=== PATIENT | male | born 1935 | race Native Hawaiian/Other Pacific Islander ===

== ENCOUNTER 2018-08-24 12:44 | Inpatient (IN) | payer MEDICARE, MEDICAID ==
[~2018-08-24] VITALS: Ht 154.9 cm; Wt 55.8 kg
[2018-08-24 13:34] LABS: BASOPHILS # (AUTO) 0.1 K/uL (0.0-8.0); BASOPHILS % (AUTO) 0.8 % (0.0-2.0); EOSINOPHILS % (AUTO) 0.6 % (0.0-7.0); HEMATOCRIT 46.4 % (36.7-47.1); LYMPHOCYTES # (AUTO) 1.4 K/uL (20.0-40.0); LYMPHOCYTES % (AUTO) 20.2 % (20.5-51.5); MEAN CORPUSCULAR HEMOGLOBIN 33.8 uug (23.8-33.4); MEAN CORPUSCULAR HGB CONC 35 g/dL (32.5-36.3); MONOCYTES # (AUTO) 0.5 K/uL (2.0-10.0); MONOCYTES % (AUTO) 7.1 % (0.0-11.0); NEUTROPHILS % (AUTO) 71.3 % (38.5-71.5); PLATELET COUNT (AUTO) 207 K/uL (152-348); RED BLOOD CELL COUNT(AUTO) 4.74 MIL/uL (4.06-5.63); WHITE BLOOD COUNT (AUTO) 7.1 K/uL (3.6-10.2)
[2018-08-24 13:45] LABS: CARBON DIOXIDE 19 mmol/L (21-32); CHLORIDE 107 mmol/L (98-107); CREATININE 1.2 mg/dL (0.6-1.3); GLUCOSE 106 mg/dL (74-106); POTASSIUM 3.5 mmol/L (3.5-5.1); UREA NITROGEN, BLOOD 17 mg/dL (7-18)
[2018-08-24 13:51] LABS: ETHANOL < 3 MG/DL (0-0)
[2018-08-24 13:52] LABS: ACETAMINOPHEN < 2.0 ug/mL (10-30); ALANINE AMINOTRANSFERASE 38 U/L (16-63); ALKALINE PHOSPHATASE 102 U/L (50-136); ASPARTATE AMINOTRANSFERASE 27 U/L (15-37); BILIRUBIN,DIRECT 0.2 mg/dL (0.0-0.2); BILIRUBIN,TOTAL 1.4 mg/dL (0.2-1.0); TOTAL PROTEIN, SERUM 8.1 g/dL (6.4-8.2)
[2018-08-24] MEDS ORDERED: LOSA50TA21 PO (13:52)
[2018-08-24] MEDS ORDERED: TAMS0.4C34 PO (13:52)
[2018-08-24] MEDS ORDERED: RIVA1.5C7 PO (13:52)
[2018-08-24] MEDS ORDERED: COLC0.6C3 PO (13:52)
[2018-08-24] MEDS ORDERED: HALO0.5T PO (13:52)
[2018-08-24] MEDS ORDERED: ALLO300T2 PO (13:52)
[2018-08-24 14:19] LABS: *BILIRUBIN,URIN NEGATIVE (NEGATIVE); *BLOOD, URINE NEGATIVE (NEGATIVE); *CLARITY,URINE CLEAR (CLEAR); *COLOR,URINE YELLOW (YELLOW); *KETONES,URINE 1+ (NEGATIVE); *PROTEIN,URINE NEGATIVE (NEGATIVE); *UROBILINOGEN,URINE 0.2 E.U./dl (NORMAL); LEUKOCYTE ESTERASE ,URINE NEGATIVE (NEGATIVE); NITRITE, URINE NEGATIVE (NEGATIVE); UGLUCOSE NEGATIVE (NEGATIVE)
[2018-08-24 14:24] LABS: BACTERIA,URINE FEW /HPF (NONE SEEN); RBC,URINE NONE SEEN /HPF (0-3); SQUAMOUS EPITHELIAL CELL,UR FEW /HPF (NONE SEEN); WBC,URINE 0-3 /HPF (0-3)
[2018-08-24 14:29] LABS: *AMPHETAMINE, URINE NEGATIVE (NEGATIVE); *BARBITURATE, URINE NEGATIVE (NEGATIVE); *CANNABINOID, URINE NEGATIVE (NEGATIVE); *COCCAINE, URINE NEGATIVE (NEGATIVE); *OPIATE, URINE NEGATIVE (NEGATIVE); *PHENCYCLIDINE SCREEN,URINE NEGATIVE (NEGATIVE)
[2018-08-24] MEDS ORDERED: ZOLPIDEM 5 MG TABLET PO PRN (16:45)
[2018-08-24] MEDS ORDERED: MAGNESIUM HYDROXIDE 30 ML LIQUID UDC PO PRN (16:45)
[2018-08-24] MEDS ORDERED: ACETAMINOPHEN 325 MG TABLET PO PRN (16:45)
[2018-08-24] MEDS ORDERED: MAG HYDROX/AL HYDROX/SIMETH 30 ML LIQUID UDC PO PRN (16:45)
[2018-08-24] MEDS ORDERED: LORAZEPAM 1 MG TABLET PO PRN (16:45)
[2018-08-24 20:37] VITALS: BP 99/61
[2018-08-25 07:30] VITALS: BP 147/72
[2018-08-25 08:09] LABS: BILIRUBIN,DIRECT 0.2 mg/dL (0.0-0.2); BILIRUBIN,TOTAL 1.4 mg/dL (0.2-1.0); MAGNESIUM 2.4 mg/dL (1.8-2.4)
[2018-08-25] MEDS ORDERED: Medication Not On Formulary EA (Colchicine 0.6 MG) PO SCH (09:00)
[2018-08-25] MEDS: ALLOPURINOL 300 MG TABLET PO SCH (10:39)
[2018-08-25] MEDS: LOSARTAN POTASSIUM 50 MG TABLET PO SCH (10:39)
[2018-08-25] MEDS: COLCHICINE 0.6 MG TABLET PO SCH ×2 (10:39→17:38)
[2018-08-25] MEDS: TAMSULOSIN HCL 0.4 MG CAP.SR.24H PO SCH (10:39)
[2018-08-25 15:21] VITALS: BP 95/54
[2018-08-25] MEDS: HALOPERIDOL 0.5 MG TABLET PO SCH ×2 (17:38→21:08)
[2018-08-25 20:17] VITALS: BP 112/56
[2018-08-26 07:30] VITALS: BP 118/67
[2018-08-26] MEDS: TAMSULOSIN HCL 0.4 MG CAP.SR.24H PO SCH (09:59)
[2018-08-26] MEDS: HALOPERIDOL 0.5 MG TABLET PO SCH ×4 (09:59→21:11)
[2018-08-26] MEDS: ESCITALOPRAM OXALATE 10 MG TABLET PO SCH (09:59)
[2018-08-26] MEDS: ALLOPURINOL 300 MG TABLET PO SCH (09:59)
[2018-08-26] MEDS: COLCHICINE 0.6 MG TABLET PO SCH ×2 (09:59→17:32)
[2018-08-26] MEDS: LOSARTAN POTASSIUM 50 MG TABLET PO SCH (09:59)
[2018-08-26 15:44] VITALS: BP 102/59
[2018-08-26 20:22] VITALS: BP 92/53
[2018-08-27 07:30] VITALS: BP 117/66
[2018-08-27] MEDS: TAMSULOSIN HCL 0.4 MG CAP.SR.24H PO SCH (08:51)
[2018-08-27] MEDS: ALLOPURINOL 300 MG TABLET PO SCH (08:51)
[2018-08-27] MEDS: HALOPERIDOL 0.5 MG TABLET PO SCH ×4 (08:52→20:53)
[2018-08-27] MEDS: LOSARTAN POTASSIUM 50 MG TABLET PO SCH (08:52)
[2018-08-27] MEDS: ESCITALOPRAM OXALATE 10 MG TABLET PO SCH (08:53)
[2018-08-27] MEDS: COLCHICINE 0.6 MG TABLET PO SCH ×2 (11:58→17:42)
[2018-08-27 16:00] VITALS: BP 108/61
[2018-08-27 19:30] VITALS: BP 101/54
[2018-08-28 07:30] VITALS: BP 124/72
[2018-08-28] MEDS: TAMSULOSIN HCL 0.4 MG CAP.SR.24H PO SCH (08:48)
[2018-08-28] MEDS: ESCITALOPRAM OXALATE 10 MG TABLET PO SCH (08:48)
[2018-08-28] MEDS: HALOPERIDOL 0.5 MG TABLET PO SCH ×4 (08:49→20:52)
[2018-08-28] MEDS: COLCHICINE 0.6 MG TABLET PO SCH ×2 (08:49→16:41)
[2018-08-28] MEDS: LOSARTAN POTASSIUM 50 MG TABLET PO SCH (08:49)
[2018-08-28] MEDS: ALLOPURINOL 300 MG TABLET PO SCH (08:49)
[2018-08-28 15:32] VITALS: BP 91/59
[2018-08-28 19:30] VITALS: BP 95/57
[2018-08-29 07:30] VITALS: BP 138/65
[2018-08-29] MEDS: TAMSULOSIN HCL 0.4 MG CAP.SR.24H PO SCH (08:23)
[2018-08-29] MEDS: COLCHICINE 0.6 MG TABLET PO SCH ×2 (08:23→17:03)
[2018-08-29] MEDS: LOSARTAN POTASSIUM 50 MG TABLET PO SCH (08:23)
[2018-08-29] MEDS: HALOPERIDOL 0.5 MG TABLET PO SCH ×4 (08:23→20:52)
[2018-08-29] MEDS: ALLOPURINOL 300 MG TABLET PO SCH (08:23)
[2018-08-29] MEDS: ESCITALOPRAM OXALATE 10 MG TABLET PO SCH (08:23)
[2018-08-29 16:00] VITALS: BP 114/59
[2018-08-29 20:15] VITALS: BP 100/67
[2018-08-30 07:30] VITALS: BP 114/62
[2018-08-30] MEDS: ESCITALOPRAM OXALATE 10 MG TABLET PO SCH (09:28)
[2018-08-30] MEDS: HALOPERIDOL 0.5 MG TABLET PO SCH ×4 (09:28→20:09)
[2018-08-30] MEDS: LOSARTAN POTASSIUM 50 MG TABLET PO SCH (09:29)
[2018-08-30] MEDS: TAMSULOSIN HCL 0.4 MG CAP.SR.24H PO SCH (09:29)
[2018-08-30] MEDS: ALLOPURINOL 300 MG TABLET PO SCH (09:30)
[2018-08-30] MEDS: COLCHICINE 0.6 MG TABLET PO SCH ×2 (09:30→17:38)
[2018-08-30 20:00] VITALS: BP 99/57
[2018-08-31 07:30] VITALS: BP 121/65
[2018-08-31] MEDS: LOSARTAN POTASSIUM 50 MG TABLET PO SCH (09:24)
[2018-08-31] MEDS: TAMSULOSIN HCL 0.4 MG CAP.SR.24H PO SCH (09:24)
[2018-08-31] MEDS: HALOPERIDOL 0.5 MG TABLET PO SCH ×4 (09:25→20:30)
[2018-08-31] MEDS: ESCITALOPRAM OXALATE 10 MG TABLET PO SCH (09:25)
[2018-08-31] MEDS: ALLOPURINOL 300 MG TABLET PO SCH (09:26)
[2018-08-31] MEDS: COLCHICINE 0.6 MG TABLET PO SCH ×2 (09:32→17:52)
[2018-08-31 15:35] VITALS: BP_SYST 107; BP_SYST 93; BP_DIAS 61; BP_DIAS 73
[2018-08-31 19:30] VITALS: BP 99/55
[2018-09-01 07:30] VITALS: BP 116/60
[2018-09-01 07:32] LABS: BASOPHILS % (AUTO) 0.4 % (0.0-2.0); EOSINOPHILS # (AUTO) 0.1 K/uL (0.0-0.7); EOSINOPHILS % (AUTO) 2.1 % (0.0-7.0); HEMATOCRIT 46.2 % (36.7-47.1); HEMOGLOBIN 15.6 g/dL (12.5-16.3); LYMPHOCYTES # (AUTO) 1.3 K/uL (20.0-40.0); MEAN CORPUSCULAR HEMOGLOBIN 33.3 uug (23.8-33.4); MEAN CORPUSCULAR HGB CONC 34 g/dL (32.5-36.3); MEAN CORPUSCULAR VOLUME 99.1 fL (73.0-96.2); MONOCYTES # (AUTO) 0.4 K/uL (2.0-10.0); MONOCYTES % (AUTO) 7.3 % (0.0-11.0); NEUTROPHILS # (AUTO) 4.2 K/uL (1.8-8.9); NEUTROPHILS % (AUTO) 68.2 % (38.5-71.5); PLATELET COUNT (AUTO) 202 K/uL (152-348); RED BLOOD CELL COUNT(AUTO) 4.67 MIL/uL (4.06-5.63); WHITE BLOOD COUNT (AUTO) 6.1 K/uL (3.6-10.2)
[2018-09-01 07:44] LABS: ALANINE AMINOTRANSFERASE 37 U/L (16-63); ALKALINE PHOSPHATASE 111 U/L (50-136); ASPARTATE AMINOTRANSFERASE 24 U/L (15-37); BILIRUBIN,TOTAL 0.8 mg/dL (0.2-1.0); CARBON DIOXIDE 27 mmol/L (21-32); CHLORIDE 104 mmol/L (98-107); GLUCOSE 133 mg/dL (74-106); MAGNESIUM 2.3 mg/dL (1.8-2.4); PHOSPHOROUS 3.1 mg/dL (2.5-4.9); POTASSIUM 3.7 mmol/L (3.5-5.1); TOTAL PROTEIN, SERUM 7.7 g/dL (6.4-8.2); UREA NITROGEN, BLOOD 22 mg/dL (7-18)
[2018-09-01 08:26] LABS: THYROID STIMULATING HORMONE 1.164 mIU/mL (0.358-3.740)
[2018-09-01] MEDS: HALOPERIDOL 0.5 MG TABLET PO SCH ×2 (08:31→13:10)
[2018-09-01] MEDS: TAMSULOSIN HCL 0.4 MG CAP.SR.24H PO SCH (08:31)
[2018-09-01] MEDS: ESCITALOPRAM OXALATE 10 MG TABLET PO SCH (08:31)
[2018-09-01] MEDS: COLCHICINE 0.6 MG TABLET PO SCH (08:33)
[2018-09-01] MEDS: ALLOPURINOL 300 MG TABLET PO SCH (08:33)
[2018-09-01] MEDS: LOSARTAN POTASSIUM 50 MG TABLET PO SCH (09:00)
[2018-09-01 09:50] VITALS: BP 99/61
== END 2018-09-01 14:15 | DRG 885 ==
LOC: ER 12:48 → GPS 15:34
PROVIDERS: ADMIT Psychiatry & Neurology Psychiatry; ATTEND Nurse Practitioner Acute Care
DX: F32.3 Major depressive disorder, single episode, severe with psychotic features (principal); F01.51 Vascular dementia, unspecified severity, with behavioral disturbance; E11.65 Type 2 diabetes mellitus with hyperglycemia; G93.40 Encephalopathy, unspecified; N40.0 Benign prostatic hyperplasia without lower urinary tract symptoms; M10.9 Gout, unspecified; K21.9 Gastro-esophageal reflux disease without esophagitis; K80.20 Calculus of gallbladder without cholecystitis without obstruction; I10 Essential (primary) hypertension; H91.90 Unspecified hearing loss, unspecified ear; D75.89 Other specified diseases of blood and blood-forming organs; E83.52 Hypercalcemia
CPT/HCPCS: 36415; 71045; 80307; 83615; 83735; 83970; 84100; 84443; 85025; 93005; 97110; 97116; 97530; A4663; C1758; G0480; G0480-TC

== ENCOUNTER 2018-11-25 15:29 | Inpatient (IN) | payer MEDICARE, MEDICAID ==
[~2018-11-25] VITALS: Ht 154.9 cm; Wt 57.2 kg
[~2018-11-25 15:29] MED LIST: ALLO300T2 PO; COLC0.6C3 PO; HALO0.5T PO; LOSA50TA39 PO; RIVA1.5C7 PO; TAMS0.4C34 PO
[2018-11-25] MEDS ORDERED: ESCI5TAB PO (15:58)
[2018-11-25 16:04] LABS: BASOPHILS % (AUTO) 0.6 % (0.0-2.0); EOSINOPHILS # (AUTO) 0.2 K/uL (0.0-0.7); EOSINOPHILS % (AUTO) 3.1 % (0.0-7.0); HEMOGLOBIN 13.1 g/dL (12.5-16.3); LYMPHOCYTES # (AUTO) 1.1 K/uL (20.0-40.0); LYMPHOCYTES % (AUTO) 18.1 % (20.5-51.5); MEAN CORPUSCULAR HEMOGLOBIN 33.7 uug (23.8-33.4); MEAN CORPUSCULAR HGB CONC 35 g/dL (32.5-36.3); MEAN CORPUSCULAR VOLUME 97.7 fL (73.0-96.2); MONOCYTES # (AUTO) 0.4 K/uL (2.0-10.0); MONOCYTES % (AUTO) 7.5 % (0.0-11.0); NEUTROPHILS # (AUTO) 4.1 K/uL (1.8-8.9); NEUTROPHILS % (AUTO) 70.7 % (38.5-71.5); PLATELET COUNT (AUTO) 154 K/uL (152-348); RED BLOOD CELL COUNT(AUTO) 3.89 MIL/uL (4.06-5.63); WHITE BLOOD COUNT (AUTO) 5.9 K/uL (3.6-10.2)
[2018-11-25 16:15] LABS: ACETAMINOPHEN < 2.0 ug/mL (10-30); ALANINE AMINOTRANSFERASE 28 U/L (16-63); ALKALINE PHOSPHATASE 103 U/L (50-136); ASPARTATE AMINOTRANSFERASE 18 U/L (15-37); BILIRUBIN,DIRECT 0.1 mg/dL (0.0-0.2); BILIRUBIN,TOTAL 0.4 mg/dL (0.2-1.0); CARBON DIOXIDE 29 mmol/L (21-32); CHLORIDE 106 mmol/L (98-107); CREATININE 1.2 mg/dL (0.6-1.3); GLUCOSE 120 mg/dL (74-106); POTASSIUM 3.7 mmol/L (3.5-5.1); TOTAL PROTEIN, SERUM 6.5 g/dL (6.4-8.2); UREA NITROGEN, BLOOD 19 mg/dL (7-18)
[2018-11-25 16:16] LABS: ETHANOL < 3 MG/DL (0-0)
[2018-11-25] MEDS ORDERED: Medication Not On Formulary EA (Colchicine 0.6 MG) PO SCH (18:30)
[2018-11-25] MEDS ORDERED: ALLOPURINOL 100 MG TABLET ONE (18:35)
[2018-11-25] MEDS ORDERED: TAMSULOSIN HCL 0.4 MG CAP.SR.24H ONE (18:35)
[2018-11-25] MEDS: TAMSULOSIN HCL 0.4 MG CAP.SR.24H PO SCH (18:38)
[2018-11-25] MEDS: ALLOPURINOL 300 MG TABLET PO SCH (18:38)
[2018-11-25] MEDS: LOSARTAN POTASSIUM 50 MG TABLET PO SCH (18:39)
[2018-11-25] MEDS ORDERED: ZOLPIDEM 5 MG TABLET PO PRN (20:15)
[2018-11-25] MEDS ORDERED: ACETAMINOPHEN 325 MG TABLET PO PRN (20:15)
[2018-11-25] MEDS ORDERED: MAGNESIUM HYDROXIDE 30 ML LIQUID UDC PO PRN (20:15)
[2018-11-25] MEDS ORDERED: MAG HYDROX/AL HYDROX/SIMETH 30 ML LIQUID UDC PO PRN (20:15)
[2018-11-25] MEDS ORDERED: LORAZEPAM 1 MG TABLET PO PRN (20:15)
[2018-11-25 20:55] VITALS: BP 114/68
[2018-11-25] MEDS: COLCHICINE 0.6 MG TABLET PO SCH (21:44)
[2018-11-26 07:30] VITALS: BP 96/58
[2018-11-26 07:51] LABS: CHOLESTEROL 109 mg/dL (<200); CREATININE 1.1 mg/dL (0.6-1.3); GLUCOSE FASTING 109 mg/dL (70-115); HDL CHOLESTEROL 44 mg/dL (40-60); TRIGLYCERIDES 70 MG/DL (30-150)
[2018-11-26] MEDS: TAMSULOSIN HCL 0.4 MG CAP.SR.24H PO SCH (08:53)
[2018-11-26] MEDS: LOSARTAN POTASSIUM 50 MG TABLET PO SCH (08:55)
[2018-11-26] MEDS: COLCHICINE 0.6 MG TABLET PO SCH ×2 (09:39→20:26)
[2018-11-26] MEDS: ALLOPURINOL 300 MG TABLET PO SCH (09:39)
[2018-11-26] MEDS: VENLAFAXINE XR 37.5 MG CAP.SR.24H PO SCH (13:26)
[2018-11-26 15:00] VITALS: BP 86/51
[2018-11-26 20:00] VITALS: BP 109/68
[2018-11-26] MEDS: HALOPERIDOL 0.5 MG TABLET PO SCH (20:26)
[2018-11-27 08:10] VITALS: BP 131/70
[2018-11-27] MEDS: VENLAFAXINE XR 37.5 MG CAP.SR.24H PO SCH (09:02)
[2018-11-27] MEDS: HALOPERIDOL 0.5 MG TABLET PO SCH ×2 (09:02→20:42)
[2018-11-27] MEDS: TAMSULOSIN HCL 0.4 MG CAP.SR.24H PO SCH (09:02)
[2018-11-27] MEDS: LOSARTAN POTASSIUM 50 MG TABLET PO SCH (09:03)
[2018-11-27] MEDS: ALLOPURINOL 300 MG TABLET PO SCH (09:04)
[2018-11-27] MEDS: COLCHICINE 0.6 MG TABLET PO SCH ×2 (09:04→20:42)
[2018-11-27] MEDS ORDERED: LORAZEPAM 0.5 MG TABLET PO PRN (16:00)
[2018-11-27 16:09] VITALS: BP 83/50
[2018-11-27 20:00] VITALS: BP 114/57
[2018-11-28 07:30] VITALS: BP 119/63
[2018-11-28] MEDS: TAMSULOSIN HCL 0.4 MG CAP.SR.24H PO SCH (08:51)
[2018-11-28] MEDS: COLCHICINE 0.6 MG TABLET PO SCH ×2 (08:51→20:20)
[2018-11-28] MEDS: HALOPERIDOL 0.5 MG TABLET PO SCH ×2 (08:51→20:20)
[2018-11-28] MEDS: VENLAFAXINE XR 37.5 MG CAP.SR.24H PO SCH (08:51)
[2018-11-28] MEDS: ALLOPURINOL 300 MG TABLET PO SCH (08:52)
[2018-11-28] MEDS: LOSARTAN POTASSIUM 50 MG TABLET PO SCH (09:00)
[2018-11-28 15:56] VITALS: BP 110/66
[2018-11-28 20:03] VITALS: BP 103/57
[2018-11-29 07:56] VITALS: BP 125/65
[2018-11-29] MEDS: VENLAFAXINE XR 37.5 MG CAP.SR.24H PO SCH (08:28)
[2018-11-29] MEDS: TAMSULOSIN HCL 0.4 MG CAP.SR.24H PO SCH (08:28)
[2018-11-29] MEDS: COLCHICINE 0.6 MG TABLET PO SCH ×2 (08:28→20:19)
[2018-11-29] MEDS: LOSARTAN POTASSIUM 50 MG TABLET PO SCH (08:28)
[2018-11-29] MEDS: ALLOPURINOL 300 MG TABLET PO SCH (08:29)
[2018-11-29] MEDS: HALOPERIDOL 0.5 MG TABLET PO SCH ×2 (08:30→20:20)
[2018-11-29 17:02] VITALS: BP 110/63
[2018-11-29 20:19] VITALS: BP 112/64
[2018-11-30 07:30] VITALS: BP 129/69
[2018-11-30] MEDS ORDERED: VENLAFAXINE XR 37.5 MG CAP.SR.24H PO SCH (09:00)
[2018-11-30] MEDS: COLCHICINE 0.6 MG TABLET PO SCH ×2 (09:00→21:32)
[2018-11-30] MEDS: LOSARTAN POTASSIUM 50 MG TABLET PO SCH (09:00)
[2018-11-30] MEDS: ALLOPURINOL 300 MG TABLET PO SCH (09:01)
[2018-11-30] MEDS: HALOPERIDOL 0.5 MG TABLET PO SCH ×2 (09:01→21:32)
[2018-11-30] MEDS: TAMSULOSIN HCL 0.4 MG CAP.SR.24H PO SCH (09:01)
[2018-11-30] MEDS: VENLAFAXINE XR 75 MG CAP.SR.24H PO SCH (09:04)
[2018-11-30 16:00] VITALS: BP 94/56
[2018-11-30 20:11] VITALS: BP 101/52
[2018-12-01 07:30] VITALS: BP 135/68
[2018-12-01] MEDS: ALLOPURINOL 300 MG TABLET PO SCH (09:08)
[2018-12-01] MEDS: TAMSULOSIN HCL 0.4 MG CAP.SR.24H PO SCH (09:08)
[2018-12-01] MEDS: VENLAFAXINE XR 75 MG CAP.SR.24H PO SCH (09:08)
[2018-12-01] MEDS: HALOPERIDOL 0.5 MG TABLET PO SCH ×2 (09:08→20:37)
[2018-12-01] MEDS: COLCHICINE 0.6 MG TABLET PO SCH ×2 (09:08→20:37)
[2018-12-01] MEDS: LOSARTAN POTASSIUM 50 MG TABLET PO SCH (09:09)
[2018-12-01 16:00] VITALS: BP 102/56
[2018-12-01 20:06] VITALS: BP 100/55
[2018-12-02 07:30] VITALS: BP 91/48
[2018-12-02] MEDS: LOSARTAN POTASSIUM 50 MG TABLET PO SCH (08:45)
[2018-12-02] MEDS: HALOPERIDOL 0.5 MG TABLET PO SCH ×2 (08:45→20:11)
[2018-12-02] MEDS: COLCHICINE 0.6 MG TABLET PO SCH ×2 (08:45→20:11)
[2018-12-02] MEDS: VENLAFAXINE XR 75 MG CAP.SR.24H PO SCH (08:45)
[2018-12-02] MEDS: ALLOPURINOL 300 MG TABLET PO SCH (08:45)
[2018-12-02] MEDS: TAMSULOSIN HCL 0.4 MG CAP.SR.24H PO SCH (08:47)
[2018-12-02 16:00] VITALS: BP 97/55
[2018-12-02 20:00] VITALS: BP 95/54
[2018-12-03 07:30] VITALS: BP 116/62
[2018-12-03] MEDS: COLCHICINE 0.6 MG TABLET PO SCH ×2 (08:08→20:55)
[2018-12-03] MEDS: HALOPERIDOL 0.5 MG TABLET PO SCH ×2 (08:08→20:55)
[2018-12-03] MEDS: LOSARTAN POTASSIUM 50 MG TABLET PO SCH (08:08)
[2018-12-03] MEDS: VENLAFAXINE XR 75 MG CAP.SR.24H PO SCH (08:08)
[2018-12-03] MEDS: TAMSULOSIN HCL 0.4 MG CAP.SR.24H PO SCH (08:08)
[2018-12-03] MEDS: ALLOPURINOL 300 MG TABLET PO SCH (08:08)
[2018-12-03 16:42] VITALS: BP 93/49
[2018-12-03 20:21] VITALS: BP 114/58
[2018-12-04 07:11] LABS: BASOPHILS % (AUTO) 0.8 % (0.0-2.0); EOSINOPHILS # (AUTO) 0.2 K/uL (0.0-0.7); EOSINOPHILS % (AUTO) 4.8 % (0.0-7.0); HEMATOCRIT 37.5 % (36.7-47.1); HEMOGLOBIN 13.2 g/dL (12.5-16.3); LYMPHOCYTES # (AUTO) 1.3 K/uL (20.0-40.0); LYMPHOCYTES % (AUTO) 27.7 % (20.5-51.5); MEAN CORPUSCULAR HGB CONC 35 g/dL (32.5-36.3); MEAN CORPUSCULAR VOLUME 96.6 fL (73.0-96.2); MONOCYTES # (AUTO) 0.4 K/uL (2.0-10.0); MONOCYTES % (AUTO) 8.4 % (0.0-11.0); NEUTROPHILS # (AUTO) 2.8 K/uL (1.8-8.9); NEUTROPHILS % (AUTO) 58.3 % (38.5-71.5); PLATELET COUNT (AUTO) 175 K/uL (152-348); RED BLOOD CELL COUNT(AUTO) 3.88 MIL/uL (4.06-5.63); WHITE BLOOD COUNT (AUTO) 4.7 K/uL (3.6-10.2)
[2018-12-04 07:29] LABS: ALANINE AMINOTRANSFERASE 27 U/L (16-63); ALKALINE PHOSPHATASE 87 U/L (50-136); ASPARTATE AMINOTRANSFERASE 23 U/L (15-37); BILIRUBIN,TOTAL 0.8 mg/dL (0.2-1.0); CARBON DIOXIDE 29 mmol/L (21-32); CHLORIDE 107 mmol/L (98-107); GLUCOSE 81 mg/dL (74-106); MAGNESIUM 2.1 mg/dL (1.8-2.4); PHOSPHOROUS 3.6 mg/dL (2.5-4.9); POTASSIUM 3.8 mmol/L (3.5-5.1); TOTAL PROTEIN, SERUM 6.5 g/dL (6.4-8.2); UREA NITROGEN, BLOOD 16 mg/dL (7-18); URIC ACID 3.3 mg/dL (3.5-7.2)
[2018-12-04 07:30] VITALS: BP 139/64
[2018-12-04 08:39] VITALS: BP 139/64
[2018-12-04] MEDS: ALLOPURINOL 300 MG TABLET PO SCH (08:39)
[2018-12-04] MEDS: HALOPERIDOL 0.5 MG TABLET PO SCH (08:39)
[2018-12-04] MEDS: VENLAFAXINE XR 75 MG CAP.SR.24H PO SCH (08:39)
[2018-12-04] MEDS: COLCHICINE 0.6 MG TABLET PO SCH (08:39)
[2018-12-04] MEDS: LOSARTAN POTASSIUM 50 MG TABLET PO SCH (08:39)
== END 2018-12-04 11:45 | DRG 885 ==
LOC: ER 15:29 → GPS 19:28
PROVIDERS: ADMIT Psychiatry & Neurology Psychiatry; ATTEND Internal Medicine
DX: F23 Brief psychotic disorder (principal); F01.50 Vascular dementia, unspecified severity, without behavioral disturbance, psychotic disturbance, mood disturbance, and anxiety; N17.0 Acute kidney failure with tubular necrosis; E11.65 Type 2 diabetes mellitus with hyperglycemia; G93.49 Other encephalopathy; F32.9 Major depressive disorder, single episode, unspecified; N40.0 Benign prostatic hyperplasia without lower urinary tract symptoms; Z91.5 Personal history of self-harm; Z79.899 Other long term (current) drug therapy; M10.9 Gout, unspecified; K21.9 Gastro-esophageal reflux disease without esophagitis; Z86.718 Personal history of other venous thrombosis and embolism; E80.6 Other disorders of bilirubin metabolism; I10 Essential (primary) hypertension; E86.0 Dehydration
CPT/HCPCS: 36415; 83735; 84100; 84550; 85025; 93005; 97110; 97116; 97530; A4663; G0480; G0480-TC; J8499